=== PATIENT | female | born 1985 | race Caucasian/White ===

== ENCOUNTER → 2023-09-12 | Outpatient (CLI) | payer OTHER ==
[2023-09-12 15:54] LABS: Bacterial Vaginosis PCR Negative (NEGATIVE); Candida Group, PCR DETECTED (NOT DETECT); Candida glabrata-krusei, PCR NOT DETECTED (NOT DETECT)
== END | disposition home or self-care (01) ==
LOC: LAB SHORT 09:50 → LAB 09:50
PROVIDERS: Family Medicine
DX: N89.8 Other specified noninflammatory disorders of vagina (principal)
CPT/HCPCS: 87481; 87661; 87801

== ENCOUNTER 2025-05-19 08:06 | Emergency (ER) | payer OTHER ==
[~2025-05-19] VITALS: Ht 154.9 cm; Wt 81.7 kg
[2025-05-19 08:19] VITALS: BP 122/81
[2025-05-19] MEDS ORDERED: NS 1,000 ML IV SCH (08:20)
[2025-05-19] MEDS ORDERED: Proparacaine 0.5% Opth Soln 15 ML BTL BOTHEYES ONE (08:25)
[2025-05-19] MEDS ORDERED: Fluorescein Sod 1MG Opth Strips BOTHEYES ONE (08:25)
== END 2025-05-19 10:10 | disposition home or self-care (01) ==
LOC: ER 08:06
DX: S05.92XA Unspecified injury of left eye and orbit, initial encounter (principal); Z59.89 Other problems related to housing and economic circumstances; X58.XXXA Exposure to other specified factors, initial encounter
CPT/HCPCS: 99283; A9270; A9270-GY; J7030